=== PATIENT | male | born 1995 | race Caucasian/White ===

== ENCOUNTER 2017-03-24 18:21 | Emergency (ER) | payer MEDICAID, OTHER ==
[~2017-03-24] VITALS: Ht 180.3 cm; Wt 119.5 kg
[2017-03-24 18:47] VITALS: BP 135/67
--- NOTE | 2017-03-24 19:08 | NUR ---
Patient to bed 07.
--- NOTE | 2017-03-24 19:23 | NUR ---
21Y M BIB SELF C/O FINGER PAIN S/P LACERATION ON 2ND, 3RD (DEEPER), 4TH DIGIT ON LEFT HAND FROM SHEET METAL; + CMS TO ALL DIGITALS OF THE LEFT HAND; PT DENIES ANY N/V/D/ SOB, CP AT THE MOMENT. PT AAOX4. HX; DENIES RX; DENIES
--- NOTE | 2017-03-24 19:45 | NUR ---
LIDOCAINE 1% PULL AND PLACED AT BEDSIDE FOR DR MOORE; PER DR MOORE
[2017-03-24] MEDS ORDERED: LIDOCAINE 1% ***ER ONLY *** 50 ML ONE (19:57)
[2017-03-24] MEDS ORDERED: IBUPROFEN 600 MG TAB PO ONE (20:50)
[2017-03-24] MEDS ORDERED: HYDROcodone/APAP 5/325 MG 1 TAB TAB PO ONE (20:50)
[2017-03-24] MEDS ORDERED: cefTRIAXone 1,000 MG in LIDOCAINE 1% ***ER ONLY *** 2.1 ML IM ONE (20:50)
[2017-03-24 21:47] VITALS: BP 133/68
--- NOTE | 2017-03-24 21:48 | NUR ---
Patient discharged with v/s stable. Written and verbal after care instructions given and explained. Patient alert, oriented and verbalized understanding of instructions. Ambulatory with steady gait. All questions addressed prior to discharge. ID band removed. Patient advised to follow up with PMD. Rx of [id number],IBUPROFEN 800MG/PRN given. Patient educated on indication of medication including possible reaction and side effects. Opportunity to ask questions provided and answered.
== END 2017-03-24 21:47 | disposition home or self-care (01) ==
LOC: MED 18:21
DX: S61.213A Laceration without foreign body of left middle finger without damage to nail, initial encounter (principal); I10 Essential (primary) hypertension; W45.8XXA Other foreign body or object entering through skin, initial encounter; Y93.89 Activity, other specified; Y92.89 Other specified places as the place of occurrence of the external cause; Y99.8 Other external cause status
CPT/HCPCS: 12001; 90471; 90715; 96372; 99284; J0696; J2001

== ENCOUNTER 2021-10-02 22:46 | Emergency (ER) | payer OTHER ==
[~2021-10-02] VITALS: Ht 182.9 cm; Wt 120.7 kg
[2021-10-02 22:59] VITALS: BP 130/74
--- NOTE | 2021-10-02 23:04 | NUR ---
PATIENT TO BED 11
[2021-10-02] MEDS ORDERED: KETOROLAC 60 MG/2 ML VIAL IM ONE (23:40)
--- NOTE | 2021-10-02 23:48 | NUR ---
MEDICATED PER [facility] ORDER, TOLERATED WELL.
--- NOTE | 2021-10-03 00:36 | NUR ---
kaci states pain has decreasd but remians @ 10/02. pt offered heat pack and pain rx and declined. awaiting Ct results.
--- NOTE | 2021-10-03 01:00 | NUR ---
No change in condition at this time. Patient states, "pain is better but still there."
[2021-10-03] MEDS ORDERED: NAPR-54 PO (01:56)
[2021-10-03 02:03] VITALS: BP 128/77
--- NOTE | 2021-10-03 02:03 | NUR ---
Patient discharged with v/s stable. Written and verbal after care instructions given and explained by . Patient alert, oriented and verbalized understanding of instructions. Ambulatory with steady gait. All questions addressed prior to discharge. ID band removed. Patient advised to follow up with PMD. Rx of Naprosyn given. Patient educated on indication of medication including possible reaction and side effects. Opportunity to ask questions provided and answered.
== END 2021-10-03 02:03 | disposition home or self-care (01) ==
LOC: MED 22:46
DX: S33.5XXA Sprain of ligaments of lumbar spine, initial encounter (principal); I10 Essential (primary) hypertension; Z79.1 Long term (current) use of non-steroidal anti-inflammatories (NSAID); X50.0XXA Overexertion from strenuous movement or load, initial encounter; Y92.89 Other specified places as the place of occurrence of the external cause; Y93.89 Activity, other specified; Y99.8 Other external cause status
CPT/HCPCS: 72131; 96372; 99284; J1885